=== PATIENT | female | born 1960 | race Caucasian/White ===

== ENCOUNTER 2017-12-27 13:22 | Outpatient (CLI) | payer BC | END 2017-12-27 13:23 | disposition home or self-care (01) | LOC: BICMAMMO 13:22 | PROVIDERS: ATTEND Internal Medicine | DX: Z12.31 Encounter for screening mammogram for malignant neoplasm of breast (principal) | CPT/HCPCS: 77063; 77067 ==

== ENCOUNTER 2021-02-27 08:15 | Outpatient (CLI) | payer BC | END 2021-02-27 08:16 | disposition home or self-care (01) | LOC: BICCT 08:15 | PROVIDERS: ATTEND Otolaryngology Plastic Surgery within the Head & Neck | DX: K11.1 Hypertrophy of salivary gland (principal); M35.00 Sjogren syndrome, unspecified | CPT/HCPCS: 70491 ==